=== PATIENT | female | born 1955 | race Two or more races ===

== ENCOUNTER → 2018-12-02 | Outpatient (CLI) | payer OTHER ==
--- NOTE | 2018-12-02 14:20 | REP ---
Chest x-ray: Two views. History: Cough. Findings: The lungs are symmetrically aerated and clear. Pleural angles are sharp. There are degenerative changes in the thoracic spine. The thoracic aorta is slightly calcific and tortuous. Pulmonary vasculature is not increased. Impression: No acute disease. Electronically Signed by Seth Flor MD 12/02/2018 02:13 P
== END ==
LOC: M LRY 13:48
PROVIDERS: ATTEND Nurse Practitioner Family
DX: M51.34 Other intervertebral disc degeneration, thoracic region (principal); R05 Cough